=== PATIENT | male | born 1935 | race Caucasian/White ===

== ENCOUNTER → 2017-06-29 | Outpatient (CLI) | payer MEDICARE, BC ==
--- NOTE | 2017-06-29 14:34 | RAD ---
Frontal view of the chest. 3 views right RIBS 06/29/2017 Indication: Right-sided rib pain since last week. Comparison study: Chest radiograph May 30, 2016 Findings: Prior median sternotomy noted. Heart size is normal. No pneumothorax or pleural effusion is seen. No focal infiltrate is identified. No rib fracture is identified. Impression: No displaced rib fracture or other acute cardiopulmonary process is identified
== END | disposition home or self-care (01) ==
LOC: PMG 14:05
PROVIDERS: ATTEND Physician Assistant
DX: R07.81 Pleurodynia (principal)
CPT/HCPCS: 71101

== ENCOUNTER → 2017-09-21 | Outpatient (CLI) | payer MEDICARE, BC ==
--- NOTE | 2017-09-21 08:34 | RAD ---
EXAM: Chest 2 views. HISTORY: Chest congestion. COMPARISON: 06/29/2017. FINDINGS: Frontal and lateral views of the chest are obtained. There are changes of coronary artery bypass grafting. There are no confluent infiltrates. There is no pneumothorax or pleural effusion. The heart is not enlarged. There are atherosclerotic calcifications of the aorta. There are calcified granulomas on the left. Cholecystectomy clips are noted. IMPRESSION: 1. No confluent infiltrates.
== END | disposition home or self-care (01) ==
LOC: PMG 07:47
PROVIDERS: ATTEND Physician Assistant Medical
DX: R09.89 Other specified symptoms and signs involving the circulatory and respiratory systems (principal); I70.0 Atherosclerosis of aorta
CPT/HCPCS: 71046